=== PATIENT | male | born 2000 | race Caucasian/White ===

== ENCOUNTER 2021-05-27 15:29 | Emergency (ER) | payer BC, OTHER | END 2021-05-27 16:31 | disposition home or self-care (01) | LOC: DL.ED 15:29 | DX: S93.602A Unspecified sprain of left foot, initial encounter (principal); Z88.1 Allergy status to other antibiotic agents; X50.1XXA Overexertion from prolonged static or awkward postures, initial encounter | CPT/HCPCS: 73610-LT; 73620-LT; 99283-25 ==